=== PATIENT | male | born 1975 | race Caucasian/White ===

== ENCOUNTER 2017-09-02 16:01 | Emergency (ER) | payer BC, MEDICAID ==
[2017-09-02] MEDS ORDERED: 0.9 % SODIUM CHLORIDE 1,000 ML BAG IV ONE (16:44)
[2017-09-02] MEDS ORDERED: ACETAMINOPHEN 1,000 MG/100 ML BTL IVPB ONE (16:44)
--- NOTE | 2017-09-02 16:53 | Emergency Department Record ---
History of Present Illness - General Chief complaint: Insomnia Stated complaint: NOT EATING OR SLEEPING,ABD PAIN Time Seen by Provider: 09/02/17 16:23 Source: Patient, Family Mode of Arrival: Ambulatory Limitations: No limitations - History of Present Illness Initial comments: 42 yo male presents with nausea, vomiting, poor appetite, loose stools starting 2 hours after getting his Vivitrol shot from Dr Al of [facility] in [place]. He is being treated for alcohol abuse. He feels tired but unable to sleep. He feels shaky. He is a complete historian without memory loss. He admits to significant alcohol consumption last night with a pint of alcohol and some other miscellaneous drinks. No blood in the vomit or loose stools. He also has mild pain and swelling of the RLE. He is unsure if he injured himself. He has a history of varicose veins. He denies any opiods. He admits testing positive for methamphetamines in the last 2 weeks. MD complaint: Nausea, Vomiting -: Days(s) (2) Description of Vomiting: Watery Description of Diarrhea: Water (once daily) Severity: Moderate Quality: Cramping Consistency: Intermittent Improves with: None Worsens with: Eating, Vomiting Associated Symptoms: Loss of appetite, Nausea/vomiting, Weakness - Related Data Home Medications Medication Instructions Recorded Confirmed Last Taken Escitalopram Oxalate [Lexapro] 10 mg PO DAILY 09/02/17 09/02/17 09/02/17 08:00 Previous Rx's Medication Instructions Recorded Ondansetron [Zofran Odt] 4 mg PO Q8H #15 tab.rapdis 09/02/17 Allergies Allergy/AdvReac Type Severity Reaction Status Date / Time No Known Drug Allergies Allergy Verified 09/02/17 16:31 Travel Screening - Travel/Exposure Within Last 30 Days Have you traveled within the last 30 days?: No - Travel/Exposure Within Last Year Have you traveled outside the [place] in the last year?: No - Additonal Travel Details Have you been exposed to anyone with a communicable illness?: No - Travel Symptoms Symptom Screening: Fever (Subjective), Joint & Muscle Aches, Weakness, Fatigue, Vomiting, Lack of Appetite, Rash, Chills Review of Systems Constitutional: Reports: Malaise, Weakness. Denies: Chills, Fever Eyes: Denies: Eye discharge, Eye pain, Photophobia, Vision change ENT: Denies: Congestion, Throat pain Respiratory: Denies: Cough, Dyspnea Cardiovascular: Denies: Chest pain, Syncope Endocrine: Reports: Fatigue Gastrointestinal: Reports: Diarrhea, Nausea, Vomiting. Denies: Abdominal pain, Constipation, Hematemesis Genitourinary: Denies: Dysuria, Frequency, Hematuria, Urgency Musculoskeletal: Denies: Arthralgia, Joint swelling, Myalgia, Neck pain Skin: Denies: Bruising, Change in color, Rash Neurological: Reports: Weakness. Denies: Headache, Numbness, Vertigo Psychiatric: Denies: Anxiety Hematological/Lymphatic: Denies: Blood Clots, Easy bleeding, Easy bruising, Swollen glands Past Medical History - SOCIAL HISTORY Smoking Status: Never smoker Alcohol Use: Heavy Alcohol Use Comment: Just recently Drug Use: None - RESPIRATORY Hx Respiratory Disorders: No - CARDIOVASCULAR Hx Cardio Disorders: No - NEURO Hx Neuro Disorders: No - GI Hx GI Disorders: No - Hx Genitourinary Disorders: No - ENDOCRINE Hx Endocrine Disorders: No - MUSCULOSKELETAL Hx Musculoskeletal Disorders: No - PSYCH Hx Psych Problems: Yes Hx Anxiety: Yes Hx Depression: Yes - HEMATOLOGY/ONCOLOGY Hx Hematology/Oncology Disorders: No Family Medical History Any Significant Family History?: No Family Hx Comment (NOT TO BE USED IN PLACE OF ITEMS BELOW): unsure Physical Exam - General General Appearance: Alert, Oriented x3, Cooperative, No acute distress Limitations: No limitations - Head Head exam: Normal inspection - Eye Eye exam: Normal appearance. negative: Conjunctival injection, Scleral icterus - ENT ENT exam: Normal exam, Mucous membranes moist, Normal orophraynx Ear exam: Normal external inspection Nasal Exam: Normal inspection Mouth exam: Normal external inspection - Neck Neck exam: Normal inspection - Respiratory Respiratory exam: Normal lung sounds bilaterally. negative: Respiratory distress - Cardiovascular Cardiovascular Exam: Regular rate, Normal rhythm, Normal heart sounds - GI/Abdominal GI/Abdominal exam: Soft. negative: Tenderness - Rectal Rectal exam: Deferred - exam: Deferred - Extremities Extremities exam: Normal inspection - Back Back exam: Denies: CVA tenderness (R), CVA tenderness (L) - Neurological Neurological exam: Alert, Oriented X3 - Psychiatric Psychiatric exam: Normal affect, Normal mood. negative: Agitated, Anxious - Skin Skin exam: Dry, Intact, Normal color. negative: Abrasion, Erythema, Pallor Course Vital Signs 09/02/17 16:21 Temperature 98.6 F Pulse Rate 69 Respiratory 20 Rate Blood Pressure 144/106 Pulse Ox 97 - Reevaluation(s) Reevaluation #1: Rudy Castillo the LANGUAGE INSTRUCTOR for Dr Al. She administered the shot to the patient on Wednesday. She was updated on the presentation The vitals were reviewed No tachycardia She stated obviously that opiods are a contraindication but benzodiazepines for symptomatic control are not. She states the patients are expected to be substance abuse free at least one week prior to the injection. The patient admitted to me he had drank heavily the night prior to injection. He denies any opiods. He admits to significant drinking Wednesday night the day after the injection. 09/02/17 16:59 09/02/17 17:21 EKG #1: 1649 Rate: 58 Rhythm: Sinus rhythm [place]: Normal Intervals: QRS 122, QTc 445 ST segments: No acute changes Prior: 09/02/17 17:22 The labs were reviewed No acute changes on the CBC The K is 3.0. Supplementation ordered No other acute changes of the liver or kidneys The Emergency Drug Screen is negative. 09/02/17 18:09 09/02/17 18:38 Alcohol is 0.08 The patient is getting some symptomatic relief at this time with the fluids and Ativan Medical Decision Making - Lab Data Result diagrams: 09/02/17 16:20 09/02/17 16:20 Disposition Disposition: Discharge Clinical Impression: Alcohol abuse Nausea and vomiting Qualifiers: Vomiting type: unspecified Vomiting Intractability: unspecified Qualified Code( s): R11.2 - Nausea with vomiting, unspecified Disposition: Home, Self-Care Condition: (1) Good Instructions: Abuse of Alcohol (ED) Additional Instructions: Call your doctor for close follow up tomorrow regarding your symptoms Do not drink alcohol You may take Zofran for nausea Call Dr Al tomorrow to be seen Prescriptions: Ondansetron [Zofran Odt] 4 mg PO Q8H #15 tab.rapdis Forms: Patient Portal Access Quality - Quality Measures Quality Measures: N/A - Blood Pressure Screening Does Patient Have Any of the Following: No Blood Pressure Classification: Hypertensive Reading Systolic Measurement: 144 Diastolic Measurement: 106 Screening for High Blood Pressure: < Pre-Hypertensive BP, F/U Documented > [ G8950] Pre-Hypertensive Follow-up Interventions: Referral to alternative/primary care provider.
[2017-09-02 16:56] LABS: BASO % 0.4 % (0-6); EOS % 0.2 % (0-6); GRAN % 62.2 % (47-80); HEMATOCRIT 42.2 % (42.0-52.0); HEMOGLOBIN 14.3 gm/dl (14.0-18.0); LYMPH % 29.9 % (16-45); MEAN CELL VOLUME 94.4 fl (81-97); MEAN CORPUSCULAR HGB CONC 33.9 g/dl (32-36); MEAN PLATELET VOLUME 9.1 fl (7.4-10.4); MONO % 7.3 % (0-9); PLATELET COUNT 268 K/uL (130-400); RED BLOOD COUNT 4.47 M/uL (4.40-5.70); RED CELL DISTRIBUTION WIDTH 13.3 % (11.5-14.5); WHITE BLOOD COUNT W/O DIFF 5.5 K/uL (4.2-12.2)
[2017-09-02] MEDS ORDERED: LORAZEPAM 2 MG/ML VIAL IV ONE ×3 (16:59→21:39)
[2017-09-02 17:08] LABS: AMPHETAMINE SCREEN URINE NOT DETECTED; BARBITURATE SCREEN URINE NOT DETECTED; BENZODIAZEPINE SCREEN URINE NOT DETECTED; COCAINE SCREEN URINE NOT DETECTED; METHADONE SCREEN URINE NOT DETECTED; METHAMPHETAMINE SCREEN NOT DETECTED; OPIATE SCREEN URINE NOT DETECTED; OXYCODONE SCREEN URINE NOT DETECTED; PHENCYCLIDINE SCREEN URINE NOT DETECTED; PROPOXYPHENE SCREEN URINE NOT DETECTED; THC SCREEN URINE NOT DETECTED; TRICYCLIC ANTIDEPRESSANT SCRN NOT DETECTED
[2017-09-02 17:09] LABS: BLOOD UREA NITROGEN 8 mg/dL (6-20); CREATININE 0.8 mg/dL (0.7-1.2); EST GLOMERULAR FILTRATION RATE > 60 mL/min
[2017-09-02 17:12] LABS: GLUCOSE,RANDOM 94 mg/dL (74-109)
[2017-09-02 17:14] LABS: ALT/SGPT 24 U/L (<41); AST/SGOT 27 U/L (10.0-50.0)
[2017-09-02 17:15] LABS: ALB/GLOB RATIO 1.6 (1.1-1.8); ALBUMIN 4.9 g/dL (4.0-5.0); ALKALINE PHOSPHATASE 75 U/L (40-129)
[2017-09-02] MEDS ORDERED: THIAMINE HCL IV 100 MG, MVI, ADULT NO.4 WITH VIT K 10 ML in POTASSIUM CHL 20MEQ IN 1L N... IV ONE ×3 (17:19)
[2017-09-02] MEDS ORDERED: POTASSIUM BICARB./CIT AC 25 MEQ EFF.TAB PO STA (17:19)
--- NOTE | 2017-09-02 20:42 | Emergency Department Record ---
History of Present Illness - General Chief Complaint: Insomnia Stated Complaint: NOT EATING OR SLEEPING,ABD PAIN Time Seen by Provider: 09/02/17 16:23 Source: Patient, Family Mode of Arrival: Ambulatory Limitations: No limitations - Tin Coma Scale Eye Response: (4) Open spontaneously Motor Response: (6) Obeys commands Verbal Response: (5) Oriented [place] Total: 15 - Related Data Home Medications Medication Instructions Recorded Confirmed Last Taken Escitalopram Oxalate [Lexapro] 10 mg PO DAILY 09/02/17 09/02/17 09/02/17 08:00 Previous Rx's Medication Instructions Recorded Ondansetron [Zofran Odt] 4 mg PO Q8H #15 tab.rapdis 09/02/17 Allergies Allergy/AdvReac Type Severity Reaction Status Date / Time No Known Drug Allergies Allergy Verified 09/02/17 16:31 Travel Screening - Travel/Exposure Within Last 30 Days Have you traveled within the last 30 days?: No - Travel/Exposure Within Last Year Have you traveled outside the [place] in the last year?: No - Additonal Travel Details Have you been exposed to anyone with a communicable illness?: No - Travel Symptoms Symptom Screening: Fever (Subjective), Joint & Muscle Aches, Weakness, Fatigue, Vomiting, Lack of Appetite, Rash, Chills Review of Systems Constitutional: Reports: Malaise, Weakness. Denies: Chills, Fever Eyes: Denies: Eye discharge, Eye pain, Photophobia, Vision change ENT: Denies: Congestion, Throat pain Respiratory: Denies: Cough, Dyspnea Cardiovascular: Denies: Chest pain, Syncope Endocrine: Reports: Fatigue Gastrointestinal: Reports: Diarrhea, Nausea, Vomiting. Denies: Abdominal pain, Constipation, Hematemesis Genitourinary: Denies: Dysuria, Frequency, Hematuria, Urgency Musculoskeletal: Denies: Arthralgia, Joint swelling, Myalgia, Neck pain Skin: Denies: Bruising, Change in color, Rash Neurological: Reports: Weakness. Denies: Headache, Numbness, Vertigo Psychiatric: Denies: Anxiety Hematological/Lymphatic: Denies: Blood Clots, Easy bleeding, Easy bruising, Swollen glands Past Medical History - SOCIAL HISTORY Smoking Status: Never smoker Alcohol Use: Heavy Alcohol Use Comment: Just recently Drug Use: None - RESPIRATORY Hx Respiratory Disorders: No - CARDIOVASCULAR Hx Cardio Disorders: No - NEURO Hx Neuro Disorders: No - GI Hx GI Disorders: No - Hx Genitourinary Disorders: No - ENDOCRINE Hx Endocrine Disorders: No - MUSCULOSKELETAL Hx Musculoskeletal Disorders: No - PSYCH Hx Psych Problems: Yes Hx Anxiety: Yes Hx Depression: Yes - HEMATOLOGY/ONCOLOGY Hx Hematology/Oncology Disorders: No Family Medical History Any Significant Family History?: No Family Hx Comment (NOT TO BE USED IN PLACE OF ITEMS BELOW): unsure Physical Exam - General Limitations: No limitations Course Vital Signs 09/02/17 09/02/17 16:21 20:09 Temperature 98.6 F Pulse Rate 69 Pulse Rate [ 72 Pulse Ox Probe] Respiratory 20 20 Rate Blood Pressure 144/106 Blood Pressure 149/87 [Left Arm] Pulse Ox 97 97 - Reevaluation(s) Reevaluation #1: 09/02/17 20:41 Patient was assessed, resting comfortably at this time and denies any needs. Will continue to monitor. Reevaluation #2: 09/02/17 21:43 Ativan ordered for patient discomfort, banana bag continues to infuse. Will continue to monitor. Reevaluation #3: 09/02/17 22:35 Patient's IVFs have completed, resting comfortably, and appears stable for discharge. Medical Decision Making - Lab Data Result diagrams: 09/02/17 16:20 09/02/17 16:20 Lab Results 09/02/17 09/02/17 09/02/17 Range/Units 16:20 16:20 16:20 WBC 5.5 (4.2-12.2) K/uL RBC 4.47 (4.40-5.70) M/uL Hgb 14.3 (14.0-18.0) gm/dl Hct 42.2 (42.0-52.0) % MCV 94.4 (81-97) fl MCH 32.0 (27-33) pg MCHC 33.9 (32-36) g/dl RDW 13.3 (11.5-14.5) % Plt Count 268 (130-400) K/uL MPV 9.1 (7.4-10.4) fl Gran % 62.2 (47-80) % Lymphocytes % 29.9 (16-45) % Monocytes % 7.3 (0-9) % Eosinophils % 0.2 (0-6) % Basophils % 0.4 (0-6) % Sodium 146 H (136-145) mmol/L Potassium 3.0 L (3.4-4.5) mmol/L Chloride 99 (98-107) mmol/L Carbon Dioxide 27.0 (22-29) mmol/L Anion Gap 20.0 H (7-16) BUN 8 (6-20) mg/dL Creatinine 0.8 (0.7-1.2) mg/dL Estimated GFR > 60 mL/min Random Glucose 94 (74-109) mg/dL Calcium 9.4 (8.6-10.0) mg/dL Magnesium 2.1 (1.6-2.6) mg/dL Total Bilirubin 0.80 (0.2-1.0) mg/dL AST 27 (10.0-50.0) U/L ALT 24 (<41) U/L Alkaline Phosphatase 75 (40-129) U/L Total Protein 8.0 (6.6-8.7) g/dL Albumin 4.9 (4.0-5.0) g/dL Globulin 3.1 (1.4-4.8) gm/dL Albumin/Globulin Ratio 1.6 (1.1-1.8) TSH 0.80 (0.270-4.20) uIU/mL Urine Opiates Screen Not detected Ur Oxycodone Screen Not detected Urine Methadone Screen Not detected Ur Propoxyphene Screen Not detected Ur Barbituates Screen Not detected Ur Tricyclics Screen Not detected Ur Phencyclidine Scrn Not detected Ur Amphetamine Screen Not detected U Methamphetamines Scrn Not detected U Benzodiazepines Scrn Not detected Urine Cocaine Screen Not detected Urine Cannabis Screen Not detected Ethyl Alcohol (0-0.010) g/dL 09/02/17 Range/Units 16:20 WBC (4.2-12.2) K/uL RBC (4.40-5.70) M/uL Hgb (14.0-18.0) gm/dl Hct (42.0-52.0) % MCV (81-97) fl MCH (27-33) pg MCHC (32-36) g/dl RDW (11.5-14.5) % Plt Count (130-400) K/uL MPV (7.4-10.4) fl Gran % (47-80) % Lymphocytes % (16-45) % Monocytes % (0-9) % Eosinophils % (0-6) % Basophils % (0-6) % Sodium (136-145) mmol/L Potassium (3.4-4.5) mmol/L Chloride (98-107) mmol/L Carbon Dioxide (22-29) mmol/L Anion Gap (7-16) BUN (6-20) mg/dL Creatinine (0.7-1.2) mg/dL Estimated GFR mL/min Random Glucose (74-109) mg/dL Calcium (8.6-10.0) mg/dL Magnesium (1.6-2.6) mg/dL Total Bilirubin (0.2-1.0) mg/dL AST (10.0-50.0) U/L ALT (<41) U/L Alkaline Phosphatase (40-129) U/L Total Protein (6.6-8.7) g/dL Albumin (4.0-5.0) g/dL Globulin (1.4-4.8) gm/dL Albumin/Globulin Ratio (1.1-1.8) TSH (0.270-4.20) uIU/mL Urine Opiates Screen Ur Oxycodone Screen Urine Methadone Screen Ur Propoxyphene Screen Ur Barbituates Screen Ur Tricyclics Screen Ur Phencyclidine Scrn Ur Amphetamine Screen U Methamphetamines Scrn U Benzodiazepines Scrn Urine Cocaine Screen Urine Cannabis Screen Ethyl Alcohol 0.080 H (0-0.010) g/dL Disposition Disposition: Discharge Clinical Impression: Alcohol abuse Nausea and vomiting Qualifiers: Vomiting type: unspecified Vomiting Intractability: unspecified Qualified Code( s): R11.2 - Nausea with vomiting, unspecified Disposition: Home, Self-Care Condition: (1) Good Instructions: Abuse of Alcohol (ED) Additional Instructions: Call your doctor for close follow up tomorrow regarding your symptoms Do not drink alcohol You may take Zofran for nausea Call Dr Al tomorrow to be seen Prescriptions: Ondansetron [Zofran Odt] 4 mg PO Q8H #15 tab.rapdis Forms: Patient Portal Access Time of Disposition: 22:36 Quality - Quality Measures Quality Measures: N/A - Blood Pressure Screening Does Patient Have Any of the Following: No Blood Pressure Classification: Hypertensive Reading Systolic Measurement: 144 Diastolic Measurement: 106 Screening for High Blood Pressure: < First Hypertensive BP, F/U Documented > [ G8950] First Hypertensive Follow-up Interventions: Referral to alternative/primary care provider.
--- NOTE | 2017-09-04 19:29 | US VENOUS DOPPLER REPORT ---
EXAM: ULTRASOUND VENOUS DOPPLER LOWER EXT RT HISTORY: RIGHT LOWER EXTREMITY PAIN AND SWELLING. POST VEIN SURGERY LEFT LEG. TECHNIQUE: Emergency venous Doppler ultrasound of the right lower extremity was performed with color-flow and spectral analysis utilized. Compression and flow augmentation maneuvers utilized in the thigh and popliteal region as well. COMPARISON: None. FINDINGS: No DVT identified in the right lower extremity. Flow is seen throughout from the inguinal region down through the calf. Flow augmentation and compression was evident in the thigh and popliteal region as well. Note was made of some apparent collateral veins in the region of the right popliteal area. Brief evaluation of the left groin demonstrated some collateral veins in this region as well near the greater saphenous vein. IMPRESSION: 1. NO DVT EVIDENT IN THE RIGHT LOWER EXTREMITY. 2. SOME COLLATERAL FLOW IN THE REGION OF THE POPLITEAL FOSSA ON THE RIGHT. JOB NUMBER: [id number]
== END 2017-09-02 22:41 | disposition home or self-care (01) ==
LOC: ER 16:01
DX: R11.2 Nausea with vomiting, unspecified (principal); R19.7 Diarrhea, unspecified; M79.661 Pain in right lower leg; R53.1 Weakness; F10.229 Alcohol dependence with intoxication, unspecified; Y90.4 Blood alcohol level of 80-99 mg/100 ml
CPT/HCPCS: 99284 ×2; 96376; 96365; 96375; 96361; 83735; 85025; 80053; 84443; 80305; 93971; 93005; 93010; G0480; J2060; 80320; J3411; J7030